=== PATIENT | male | born 1985 | race Caucasian/White ===

== ENCOUNTER 2024-10-01 12:10 | Emergency (ER) | payer OTHER ==
[~2024-10-01] VITALS: Ht 167.6 cm; Wt 63.0 kg
[2024-10-01 12:27] VITALS: TEMP 36.7; O2SAT 97
[2024-10-01 14:06] VITALS: BP 119/87; PULSE 100; RESP 18; O2SAT 100
== END 2024-10-01 14:10 | disposition home or self-care (01) ==
LOC: ER 12:10
DX: K40.90 Unilateral inguinal hernia, without obstruction or gangrene, not specified as recurrent (principal); N43.3 Hydrocele, unspecified
CPT/HCPCS: 76870; 93976; 99284

== ENCOUNTER 2024-12-11 16:17 | Emergency (ER) | payer OTHER, MEDICAID ==
[~2024-12-11] VITALS: Ht 167.6 cm; Wt 59.0 kg
[2024-12-11 16:21] VITALS: BP 118/73; TEMP 36.6; O2SAT 97
[2024-12-11 16:24] VITALS: PULSE 100; RESP 16; O2SAT 98
== END 2024-12-11 16:56 | disposition left against medical advice (07) ==
LOC: ER 16:17
DX: R10.30 Lower abdominal pain, unspecified (principal); Z53.21 Procedure and treatment not carried out due to patient leaving prior to being seen by health care provider

== ENCOUNTER 2024-12-20 13:25 | Emergency (ER) | payer OTHER, MEDICAID ==
[~2024-12-20] VITALS: Ht 167.6 cm; Wt 68.0 kg
[2024-12-20 13:29] VITALS: O2SAT 18
[2024-12-20 13:40] VITALS: BP 136/82; PULSE 99; RESP 18; TEMP 36.7; O2SAT 99
== END 2024-12-20 15:05 | disposition home or self-care (01) ==
LOC: ER 13:25
DX: K40.90 Unilateral inguinal hernia, without obstruction or gangrene, not specified as recurrent (principal)
CPT/HCPCS: 99282